=== PATIENT | female | born 2005 | race African-American/Black ===

== ENCOUNTER 2025-09-23 08:42 | Emergency (ER) | payer OTHER ==
[2025-09-23] MEDS ORDERED: Metoclopramide HCl 10 MG (2 mL) VIAL ONE (09:15)
[2025-09-23 09:29] LABS: #Basophils 0.03 10x3/uL (0.0-0.2); #Eosinophils 0.14 10x3/uL (0.0-0.5); #Monocytes 0.75 10x3/uL (0.0-1.1); #Neutrophils 4.67 10x3/uL (1.5-8.4); %Basophils 0.4 % (0.0-2.0); %Eosinophils 1.8 % (0.0-6.0); %Lymphocytes 27.0 % (18.0-47.0); %Monocytes 9.7 % (0.0-10.0); %Neutrophils 60.7 % (40.0-75.0); Hematocrit 36.8 % (34.9-44.5); Hemoglobin 12.3 g/dL (12.0-15.5); Mean Corpuscular Hemoglobin 29.3 pg (27.0-33.0); Mean Corpuscular Volume 87.6 fL (81.6-98.3); Platelet Count 256 10x3/uL (150-450); Red Blood Cell (RBC) Count 4.20 10x6/uL (3.90-5.03); White Blood Cell (WBC) Count 7.70 10x3/uL (3.5-10.5)
[2025-09-23 09:45] LABS: ALT (SGPT) 8 U/L (Less than 34); AST (SGOT) 20 U/L (11-34); Albumin 3.8 g/dL (3.1-4.5); Alkaline Phosphatase 64 U/L (40-100); Anion Gap 14 mmol/L (10-20); BUN (Urea Nitrogen) 9 mg/dL (7.0-18.7); Bilirubin, Total 0.3 mg/dL (0.3-1.2); Calc. Creatinine Clearance 0 mL/min (70-130); Calcium 9.0 mg/dL (7.8-10.44); Carbon Dioxide 23 mmol/L (22-29); Chloride 108 mmol/L (98-107); Globulin 3.4 g/dL (2.4-3.5); Glucose 88 mg/dL (70-105); Potassium 3.8 mmol/L (3.5-5.1); Sodium 141 mmol/L (136-145)
[2025-09-23 10:30] LABS: Glucose, Urine (Dipstick) Normal (Negative); Leukocyte 25 (Negative); Protein, Urine (Dipstick) 100 mg/dl (Neg-Trace); Specific Gravity, Urine 1.020 (1.005-1.030)
[2025-09-23 10:32] LABS: Pregnancy Test - Urine (BHCG) POSITIVE (Negative); Pregu Control Background? CLEAR/WHITE (CLR/WHITE); Pregu Control Bar Appear? YES (CONTROL BAR)
[2025-09-23 11:06] LABS: Bacteria/HPF 1+ HPF (None Seen); CAUTI Indications for Culture Pelvic or flank pain; RBC/HPF Greater than 50 HPF (0-3); WBC/HPF 0-3 HPF (0-3)
[2025-09-23 11:07] LABS: Urine Culture Reflex No No
== END 2025-09-23 11:49 | disposition home or self-care (01) ==
LOC: CSHERS 08:42
DX: O20.0 Threatened abortion (principal); Z3A.00 Weeks of gestation of pregnancy not specified
CPT/HCPCS: 36415; 76856; 80053; 81001; 81025; 84702; 85025; 86900; 86901; 87086; 93976; J2765